=== PATIENT | female | born 1995 | race Caucasian/White ===

== ENCOUNTER 2021-11-30 21:54 | Inpatient (IN) | payer BC, OTHER ==
--- OUTSIDE RECORDS SUMMARY | 2021-11-30 22:52 | XMS REPORT | Continuity of Care Document ---
:1995 Author Organization [facility] t Address [facility] [address] [place] [address] Care Team Providers Name Role Phone Pcp, Patient Does Not Have A Primary Care Physician [id number] Radha LEONARDO Attending Clinician Unavailable Otilia DANIELS C Attending Clinician Visit, Nurse Attending Clinician Unavailable Sebas BARAJAS Attending Clinician Unavailable Doctor Unassigned, Name Attending Clinician Unavailable Payers Payer Name Policy Type Policy Number Effective Date Expiration Date [facility] [id number] 2021 CHOICE MEDICAID 00:00:00 Problems Condition Condition Condition Status Onset Resolution Last Treating Co mments Source Name Details Category Date Date Treatment Clinician Date Other Other Disease Active Univers general general 9-13 ity of counseling [place] advice and advice 00 Md dical for for Branch contracept contracept cordell cordell management management Vagina Vagina Disease Active Univers bleeding bleeding 9-13 ity of 00:00: [address] Allergies, Adverse Reactions, Alerts Allergy Allergy Status Severity Reaction(s) Onset Inactive Treating Comm ents Source Name Type Date Date Clinician NO KNOWN Drug Active Univers ALLERGIE Class ity of S [facility] Social History Social Habit Start Date Stop Date Quantity Comments Source Exposure to Not sure [facility] SARS-CoV-2 [facility] (event) Branch Tobacco use and 2021-03-19 2021-03-19 Never used Universit y of exposure 00:00:00 00:00:00 [facility] Alcohol intake 2021-03-19 2021-03-19 Ex-drinker [facility] 00:00:00 00:00:00 (finding) [facility] Sex Assigned At [birth year] Universit y of 00:00:00 00:00:00 [facility] Smoking Status Start Date Stop Date Source Unknown if ever smoked Universit y of [facility] Never smoker [facility] Medications Ordered Filled Start Stop Current Ordering Indication Dosage Frequency Signature Comments Components Source Medication Medication Date Date Medication? Clinician (SIG) Name Name No known No Univers medications 9-13 ity of 10:28: [address] No known No Univers medications 9-13 ity of 10:28: [address] No known No Univers medications 9-13 ity of 10:28: [address] No known No Univers medications - ity of 10:28: [address] Vital Signs Vital Name Observation Time Observation Value Comments Source Systolic blood 2021-03-19 15:32:00 123 mm[Hg] Univer sity of [facility] Diastolic blood 2021-03-19 15:32:00 80 mm[Hg] Unive rsity of [facility] Body height 2021-03-19 15:32:00 182.9 cm Universi ty [facility] Body weight 2021-03-19 15:32:00 70.761 kg Universi ty [facility] BMI 2021-03-19 15:32:00 21.16 kg/m2 Universi ty [facility] Systolic blood 2021-03-19 15:12:00 123 mm[Hg] Univer sity of [facility] Diastolic blood 2021-03-19 15:12:00 80 mm[Hg] Unive rsity of [facility] Body weight 2021-03-19 15:12:00 71.169 kg Universi ty [facility] Branch BMI 2021-03-19 15:12:00 21.28 kg/m2 Universi ty [facility] Heart rate 2021-03-19 15:11:00 77 /min Universi ty [facility] Body temperature 2021-03-19 15:11:00 36.28 [facility] Res[facility] rate 2021-03-19 15:11:00 16 /min Univ ersity [facility] Body height 2021-03-19 15:11:00 182.9 cm Universi ty [facility] Procedures Procedure Date / Time Performed Performing Clinician Cyndi schulz POCT TEST 2021-03-19 15:11:00 Inez Barajas [facility] ASSIGNMENT OF BENEFITS 2021-03-19 14:38:49 Doctor Unassigned, No [facility] Encounters Start End Encounter Admission Attending Care Care Encounter Source Date/Time Date/Time Type Type Clinicians Facility Department ID 2021-10-31 2021-10-31 Outpatient Ross LEONARDO [facility] [id number] Univers 09:45:00 09:45:00 [facility] [id number] [facility] 2021-10-31 2021-10-31 Outpatient Ross LEONARDO [facility] [id number] Univers 09:45:00 09:45:00 [facility] 2021-03-19 2021-03-19 Office Otilia CTVAISHALI [id number] Univers 10:23:10 11:04:31 Visit Inez Mullen [employer] [id number] ity of [facility] [id number] Vasquez as MATERNAL [id number] Med ical & CHILD [address] [place] [address] 2021-03-19 2021-03-19 Nurse Visit, RoseyRmchp Nurse [facility] [id number] Univers 10:00:58 10:15:58 Visit Inez Barajas [employer] [id number] ity of [facility] [id number] Vasquez as MATERNAL [id number] [facility] ical & CHILD [address] [place] [address] 2021-03-19 2021-03-19 Outpatient R [facility] [id number] Univers 10:15:00 10:15:00 [id number] [facility] 2021-03-19 2021-03-19 Outpatient R OTILIA [facility] [id number] Univers 09:30:00 09:30:00 INEZ maldoando f [facility] 2021-03-19 2021-03-19 Orders Doctor CLEMENTS [id number] Univers 00:00:00 00:00:00 Only Unassigned, YANETH [id number] ity of [facility] [id number] Vasquez as [id number] [address] Results Test Description Test Time Test Comments Results Result Comments Source POCT TEST 2021-03-19 15:11:00 Test Item Value Reference Range Interpretation Comme nts POCT PREG (test code = 1605) Negative On board controls acceptable with C Line (test code = 3574) Yes POCT PREG LOT # (test code = 3575) POCT PREG TEST DATE (test code = 3576) [facility]
[2021-11-30] MEDS ORDERED: METHYLERGONOVINE 0.2MG/ML AMP IM PRN (22:53)
[2021-11-30] MEDS ORDERED: Ringers Lactate 1,000 ML IV PRN (22:53)
[2021-11-30] MEDS ORDERED: CARBOPROST TROME 250 MCG/ML IM PRN (22:53)
[2021-11-30] MEDS ORDERED: BUTORPHANOL 1 MG/ML INJ IV PRN (22:53)
[2021-11-30] MEDS ORDERED: PROMETHAZINE INJ 25 MG/ML AMP IM PRN (22:53)
[2021-11-30] MEDS ORDERED: Ringers Lactate 1,000 ML IV SCH (23:00)
[2021-11-30] MEDS ORDERED: OXYTOCIN/LR 20 UNIT/1,000 ML BAG IV SCH (23:00)
[2021-11-30] MEDS ORDERED: OXYTOCIN/LR 20 UNIT/1,000 ML BAG IV ONE (23:24)
[2021-11-30 23:30] VITALS: BMI 23.0
[2021-11-30 23:47] LABS: Absolute Lymphocytes (CBC) 1.6 K/uL (0.7-4.9); Hematocrit 29.5 % (36.0-45.0); MPV 8.3 fL (7.6-11.3); RBC Red Blood Cell Count 3.55 M/uL (3.86-4.86)
[2021-12-01 00:04] LABS: Urine Appearance Clear (Clear); Urine Bilirubin Negative (Negative); Urine Blood Negative (Negative); Urine Color Yellow (Yellow); Urine Glucose Negative (Negative); Urine Protein Trace (Negative); Urine Specific Gravity 1.015 (1.005-1.030); Urine pH 7.5 (5.0-7.0)
[2021-12-01 00:06] LABS: Urine Microscopic Reflex ORDER UMIC
[2021-12-01 00:22] LABS: Urine Amorphous Sediment 3+ /HPF (NONE SEEN); Urine Bacteria >50 /HPF (<20); Urine Mucus 2+ /HPF (NONE SEEN); Urine RBC <5 /HPF (NONE SEEN)
[2021-12-01] MEDS ORDERED: FENTANYL/BUPIVACAINE/NS/PF 200 MCG/100 ML BAG EP PRN (02:42)
[2021-12-01] MEDS ORDERED: FENTANYL CITR 100 MCG/2 ML IV ONE (02:42)
[2021-12-01] MEDS ORDERED: BUPIVACAINE 0.25% PF 30 ML VIAL IV ONE (02:46)
[2021-12-01] MEDS ORDERED: FENTANYL CITR 100 MCG/2 ML ONE (03:27)
[2021-12-01] MEDS ORDERED: LIDOCAINE 1% 20 ML MDV ONE (03:48)
[2021-12-01] MEDS ORDERED: DIPHENHYDRAMINE 25 MG TAB/CAP PO PRN ×2 (04:03→04:48)
[2021-12-01] MEDS ORDERED: MEPERIDINE HCL 50 MG/ML ONE (04:33)
[2021-12-01] MEDS ORDERED: CEFAZOLIN 2 GM in NA CHLORIDE 0.9% 100 ML IVPB ONE (04:36)
[2021-12-01] MEDS ORDERED: CEFAZOLIN SODIUM 1 GM/VIAL ONE (04:43)
[2021-12-01] MEDS ORDERED: DOCUSATE NA/SENNA CONC 1 TAB PO PRN (04:48)
[2021-12-01] MEDS ORDERED: Oxycodone HCl/Acetaminophen 1 TAB TAB PO PRN (04:48)
[2021-12-01] MEDS ORDERED: ACETAMINOPHEN 500 MG TAB PO PRN (04:48)
[2021-12-01] MEDS ORDERED: BISACODYL 10 MG RECTAL SUPP RC PRN (04:48)
[2021-12-01] MEDS ORDERED: OXYTOCIN/LR 20 UNIT/1,000 ML BAG IV SCH (05:00)
[2021-12-01] MEDS ORDERED: MEPERIDINE HCL 50 MG/ML IV ONE (05:02)
--- NOTE | 2021-12-01 05:23 | PREOPHP ---
Date of Admission: 11/30/2021 History Of Present Illness: 26-year-old female 2, para 1, 38 weeks 3 days, came in, in early labor, ariana every 4-5 minutes, 2 to 2.5 cm. FHT is normal and reactive. The patient is Rh p ositive, immune to rubella, negative COVID, negative strep. Family History: Noncontributory. Past Medical History: No previous surgeries. No serious medical illnesses. Allergies: NO ALLERGIES. Medications: No medications prior to admission other than vitamins and iron. Social History: Does not smoke. Physical Examination: HEENT: Clear. Pupils equal round, and reactive to light and accommodation. Conjunctivae well perfu sed. No oral, lingual, or buccal lesions. Chest and Lungs: Clear. Heart: Without murmurs, thrills, heaves, or rubs. Breasts: Without masses on previous visits. Abdomen: Term size. Extremities: Clear without edema, cyanosis, or clubbing. Assessment And Plan: The patient is 2 to 2.5 cm very posterior. Baby is well applied at -1 station to almost 0 station, admit for stabilization and delivery. LUBA/PILY Voice ID: [id number]
--- NOTE | 2021-12-01 05:52 | DN ---
Surgeon: Main Chang MD History: This is a 26-year-old 2, para 1, at 38 weeks and 3 days, now ariana every 2-3 minutes. At 3 cm, requested Stadol 1 mg IV, Phenergan 25 mg IM; at 4 cm requested epidural anesthesi a. Dr. Shields attempted epidural, but was not able to inject and gave her a spinal, but this was re ally very and ineffective. Second stage of about 20 minutes. Spontaneous vaginal delivery of a 6 po unds 14 ounces male , Apgars 9 and 9, midline laceration, simulating episiotomy in the same spo t as her previous laceration from first delivery repaired with 2-0 chromic under local infiltration. Then the placenta was retained for 58 minutes. After 58 minutes, 50 mg of Demerol was given IV. Re gowning was performed and then the placenta was removed easily. The patient was given 2 g of Ancef f or prophylaxis. Minimal blood loss. Uterus contracted down well. Estimated blood loss 300 cc or th ere about. Final Diagnoses: Term intrauterine 38 weeks and 3 days at delivery, spontaneous labor, ret ained placenta. LUBA/MODL Voice ID: [id number] Report ID: [id number]
[2021-12-01] MEDS ORDERED: hydrOXYzine HCL 25 MG TAB PO ONE ×2 (08:36)
--- NOTE | 2021-12-01 12:32 | DS ---
Hospital Course: A 26-year-old 2, para 1, 38 weeks 3 days when she delivered. Came in sever al times prior to this final admission thinking she was in labor. This last admission patient was co ntracting every 4 minutes fairly firmly. She was admitted, started on light Pitocin augmentation, we nt to a very active labor pattern. Received Stadol 1 mg IV, Phenergan 25 mg IM. At approximately 4 cm, requested epidural anesthesia. Dr. Shields, Anesthesia, attempted epidural. This was not succes sful, so he gave her spinal block with fentanyl. This was also not really successful. Spontaneous v aginal delivery of a 6 pounds 14 ounces male infant after about 20 minutes second stage. Apgars 9 an d 9. Midline second-degree laceration at previous site of the previous laceration repaired with 2-0 chromic under local infiltration. The placenta was retained for 58 minutes. At this time, patient w as given 50 mg of Demerol IV, regowning was performed by myself, and the placenta was extracted easil y. Patient was given 2 g of Ancef for prophylaxis secondary to manual removal of the placenta. Uter us contracted down well with IV drip, Pitocin, massage, and 0.2 mg of Methergine. Estimated blood lo ss 300 cc or thereabouts. Patient is Rh positive, immune to rubella, negative strep, negative COVID, declines Tdap immunization. No post epidural or spinal block problems other than significant prurit us, which is resolving. She will be dismissed tomorrow morning to report back to my office in 6 week s for followup to report any temperature elevation of 100 degrees or greater, severe pain, heavy blee ding, or any other type of abnormalities. She requests no analgesics on dismissal and again Tdap off ered. No post spinal backaches or any other problems in that vicinity. Final Diagnoses: Term intrauterine 38 weeks 3 days at the time of delivery, retained place nta with manual removal. Penicillin and Ancef prophylaxis given. Tdap offered. LUBA/PILY Voice ID: [id number] Report ID: [id number]
[2021-12-01] MEDS: Oxycodone HCl/Acetaminophen 1 TAB TAB PO PRN ×2 (15:39→23:14)
[2021-12-01] MEDS: IBUPROFEN 600 MG TAB PO PRN (19:06)
[2021-12-02 04:01] LABS: RPR (Rapid Plasma Reagin) NON-REACT (NON-REACT)
[2021-12-02] MEDS: IBUPROFEN 600 MG TAB PO PRN (05:00)
[2021-12-02 13:43] VITALS: TEMP 97.9
[2021-12-02 13:59] VITALS: BP 122/71
== END 2021-12-02 11:05 | disposition home or self-care (01) | DRG 807 ==
LOC: L&D 21:54 → 2ND-WC 22:49
PROVIDERS: ADMIT Specialist; ATTEND Specialist
PROC: 10E0XZZ Delivery of Products of Conception, External Approach (ICD-10-PCS; principal; 2021-12-01)
PROC: 0KQM0ZZ Repair Perineum Muscle, Open Approach (ICD-10-PCS; 2021-12-01)
PROC: 10D17Z9 Manual Extraction of Products of Conception, Retained, Via Natural or Artificial Opening (ICD-10-PCS; 2021-12-01)
DX: O70.1 Second degree perineal laceration during delivery (principal); Z37.0 Single live birth; O73.1 Retained portions of placenta and membranes, without hemorrhage; O89.8 Other complications of anesthesia during the puerperium; L29.8 Other pruritus; Z3A.38 38 weeks gestation of pregnancy; Z20.822 Contact with and (suspected) exposure to COVID-19
CPT/HCPCS: 36415; 81003; 81015; 85025; 86592; 87086; 87088; 87340; J0595; J0690; J2175; J2210; J2550; J2590; J3010; J7120; U0003